=== PATIENT | male | born 1975 | race Caucasian/White ===

== ENCOUNTER 2016-11-17 11:01 | Emergency (ER) | payer MEDICAID | END 2016-11-17 13:02 | disposition home or self-care (01) | LOC: D.ER 11:01 | DX: M25.522 Pain in left elbow (principal); F17.200 Nicotine dependence, unspecified, uncomplicated ==

== ENCOUNTER 2016-12-16 03:25 | Emergency (ER) | payer MEDICAID | END 2016-12-16 05:51 | disposition home or self-care (01) | LOC: D.ER 03:25 | DX: M77.12 Lateral epicondylitis, left elbow (principal); I10 Essential (primary) hypertension ==

== ENCOUNTER 2017-02-04 21:23 | Emergency (ER) | payer MEDICAID | END 2017-02-05 00:30 | disposition home or self-care (01) | LOC: D.ER 21:23 | DX: M25.522 Pain in left elbow (principal); M77.12 Lateral epicondylitis, left elbow ==

== ENCOUNTER 2017-06-04 15:19 | Emergency (ER) | payer MEDICAID | END 2017-06-04 17:44 | disposition home or self-care (01) | LOC: D.ER 15:19 | DX: M77.11 Lateral epicondylitis, right elbow (principal); F17.200 Nicotine dependence, unspecified, uncomplicated ==

== ENCOUNTER 2017-07-04 07:30 | Emergency (ER) | payer MEDICAID | END 2017-07-04 08:09 | disposition home or self-care (01) | LOC: D.ER 07:30 | DX: M77.9 Enthesopathy, unspecified (principal); F17.200 Nicotine dependence, unspecified, uncomplicated ==

== ENCOUNTER 2017-08-03 08:10 | Emergency (ER) | payer MEDICAID | END 2017-08-03 11:43 | disposition home or self-care (01) | LOC: D.ER 08:10 | DX: M79.674 Pain in right toe(s) (principal); I10 Essential (primary) hypertension ==

== ENCOUNTER 2017-08-17 20:57 | Emergency (ER) | payer MEDICAID | END 2017-08-17 22:16 | disposition home or self-care (01) | LOC: D.ER 20:57 | DX: M79.674 Pain in right toe(s) (principal); M19.071 Primary osteoarthritis, right ankle and foot; F17.200 Nicotine dependence, unspecified, uncomplicated ==

== ENCOUNTER 2017-09-13 18:18 | Emergency (ER) | payer MEDICAID | END 2017-09-13 20:42 | disposition home or self-care (01) | LOC: D.ER 18:18 | DX: M65.88 Other synovitis and tenosynovitis, other site (principal); M25.522 Pain in left elbow ==

== ENCOUNTER 2017-11-01 11:56 | Emergency (ER) | payer MEDICAID | END 2017-11-01 12:20 | disposition home or self-care (01) | LOC: D.ER 11:56 | DX: M77.9 Enthesopathy, unspecified (principal) ==

== ENCOUNTER 2017-11-09 19:39 | Emergency (ER) | payer MEDICAID | END 2017-11-09 21:19 | disposition home or self-care (01) | LOC: D.ER 19:39 | DX: M25.522 Pain in left elbow (principal) ==

== ENCOUNTER 2017-11-30 12:58 | Emergency (ER) | payer MEDICAID | END 2017-11-30 16:09 | disposition home or self-care (01) | LOC: D.ER 12:58 | DX: M77.02 Medial epicondylitis, left elbow (principal); M25.522 Pain in left elbow; F17.200 Nicotine dependence, unspecified, uncomplicated ==

== ENCOUNTER 2017-12-08 17:30 | Emergency (ER) | payer MEDICAID | END 2017-12-08 20:42 | disposition home or self-care (01) | LOC: D.ER 17:30 | DX: M77.12 Lateral epicondylitis, left elbow (principal); F17.200 Nicotine dependence, unspecified, uncomplicated ==

== ENCOUNTER 2018-01-03 05:43 | Emergency (ER) | payer MEDICAID | END 2018-01-03 06:43 | disposition home or self-care (01) | LOC: D.ER 05:43 | DX: M25.522 Pain in left elbow (principal) ==

== ENCOUNTER 2018-01-31 20:56 | Emergency (ER) | payer MEDICAID ==
[~2018-01-31] VITALS: Ht 170.2 cm; Wt 81.8 kg
[2018-01-31 21:02] VITALS: Ht 170.2 cm; Wt 81.8 kg
[2018-01-31] MEDS ORDERED: ARTHROTEC EC 71 EACH PO (21:45)
[2018-01-31] MEDS ORDERED: CYCLOBENZAPRINE10 MG PO (21:45)
[2018-01-31 22:03] VITALS: BP 132/84
== END 2018-01-31 21:58 | disposition home or self-care (01) ==
LOC: D.ER 20:56
DX: M62.830 Muscle spasm of back (principal); M77.9 Enthesopathy, unspecified; M25.522 Pain in left elbow; I10 Essential (primary) hypertension; F17.200 Nicotine dependence, unspecified, uncomplicated

== ENCOUNTER 2018-03-25 05:55 | Emergency (ER) | payer SELFPAY ==
[~2018-03-25] VITALS: Ht 170.2 cm; Wt 81.8 kg
[~2018-03-25 05:55] MED LIST: ARTHROTEC EC 71 EACH PO; CYCLOBENZAPRINE10 MG PO
[2018-03-25 05:59] VITALS: Ht 170.2 cm; Wt 81.8 kg
[2018-03-25] MEDS ORDERED: NAPROSYN500 MG PO (07:38)
[2018-03-25] MEDS ORDERED: STERAPRED DS 1010 MG PO (07:42)
[2018-03-25 07:51] VITALS: BP 151/095
== END 2018-03-25 07:53 | disposition home or self-care (01) ==
LOC: D.ER 05:55
DX: M77.9 Enthesopathy, unspecified (principal); F17.200 Nicotine dependence, unspecified, uncomplicated

== ENCOUNTER 2018-08-07 08:06 | Emergency (ER) | payer SELFPAY ==
[~2018-08-07] VITALS: Ht 170.2 cm; Wt 81.8 kg
[~2018-08-07 08:06] MED LIST changes: +NAPROSYN500 MG PO; +STERAPRED DS 1010 MG PO
[2018-08-07 08:09] VITALS: Ht 170.2 cm; Wt 81.8 kg
[2018-08-07] MEDS ORDERED: HYDROCODON-ACE1 EAC7 PO (08:56)
[2018-08-07] MEDS ORDERED: NAPROSYN500 MG PO (08:57)
[2018-08-07 09:05] VITALS: BP 152/96
== END 2018-08-07 09:02 | disposition home or self-care (01) ==
LOC: D.ER 08:06
DX: G56.21 Lesion of ulnar nerve, right upper limb (principal); F17.200 Nicotine dependence, unspecified, uncomplicated

== ENCOUNTER 2018-09-07 06:17 | Emergency (ER) | payer MEDICAID ==
[~2018-09-07] VITALS: Ht 170.2 cm; Wt 81.6 kg
[~2018-09-07 06:17] MED LIST changes: +HYDROCODON-ACE1 EAC7 PO
[2018-09-07 06:21] VITALS: Ht 170.2 cm; Wt 81.6 kg
[2018-09-07] MEDS ORDERED: ULTRAM50 MG PO (07:25)
[2018-09-07] MEDS ORDERED: PREDNISONE20 MG PO (07:25)
[2018-09-07 07:53] VITALS: BP 184/132
== END 2018-09-07 07:52 | disposition home or self-care (01) ==
LOC: D.ER 06:17
DX: M25.521 Pain in right elbow (principal)